=== PATIENT | male | born 1965 | race Caucasian/White ===

== ENCOUNTER 2017-10-08 20:15 | Emergency (ER) | payer MEDICAID ==
[~2017-10-08] VITALS: Ht 165.1 cm; Wt 111.8 kg
[2017-10-08 20:25] VITALS: Ht 165.1 cm; Wt 111.8 kg
[2017-10-08 22:17] VITALS: BP 141/84
== END 2017-10-08 22:17 | disposition home or self-care (01) ==
LOC: ED 20:15
DX: L03.114 Cellulitis of left upper limb (principal); I10 Essential (primary) hypertension; J45.909 Unspecified asthma, uncomplicated
CPT/HCPCS: J0696